=== PATIENT | female | born 1965 | race Caucasian/White ===

== ENCOUNTER 2019-08-11 07:55 | Inpatient (IN) ==
[~2019-08-11 07:55] MED LIST: Vancomycin 1,000 MG, Sodium Chloride IRRigation 1,000 ML IR ONE
--- NOTE | 2019-08-11 08:03 | History & Physical Report ---
Date of Encounter: 08/11/19 Time of Encounter: 08:00 24 Hour HP Update - Instructions Instructions: If the History and Physical is less than 30 days old and was completed prior to A.M. admission and or procedure and has NOT been updated on calendar day of procedure please complete this update prior to performing procedure. - Update Patient reports changes in Medical Condition: No Changes in examination, assessment, or condition: No Changes in Medication: No Preop tests/diagnostics Reviewed: Yes Surgery Remains Indicated: Yes Consent for Planned Operative Procedure(s) Verified: Yes - Pre-Operative Checklist Preoperative Checklist Indicated: Yes Prophylactic Antibiotic Ordered: Yes (vancomycin due to risk of MRSA) Home Medications Include Beta Claudio: Yes Beta Claudio Taken Today (Day of Surgery): Yes Beta Claudio Taken Yesterday (Day Prior to Surgery): Yes Is VTE Prophylaxis Indicated?: Yes
[2019-08-11] MEDS ORDERED: CeFAZolin Syr 2,000MG/20 ML 2,000 MG/20 ML SYRINGE IVPB ONE (08:17)
[2019-08-11] MEDS ORDERED: Albuterol 2.5 MG/3 ML NEBULIZER IH ONE (08:17)
[2019-08-11] MEDS ORDERED: *HR* Midazolam HCl 2 MG/2 ML VIAL ONE (08:21)
[2019-08-11] MEDS ORDERED: *HR* FentaNYL (PF) 100 MCG/2 ML VIAL ONE (08:21)
[2019-08-11] MEDS ORDERED: Lidocaine -MPF 2% 2 ML VIAL ONE ×2 (08:24→09:09)
[2019-08-11] MEDS ORDERED: EPHEDrine 50 MG/ML VIAL ONE (08:24)
[2019-08-11] MEDS ORDERED: *HR* Heparin 5,000 UNIT/ML VIAL ONE ×2 (08:26→12:15)
[2019-08-11] MEDS ORDERED: *HR* Phenylephrine 10 MG/ML VIAL ONE (08:28)
[2019-08-11] MEDS ORDERED: Ringers Solution, Lactated 1,000 ML IVC SCH (08:30)
[2019-08-11] MEDS ORDERED: Heparin 1,000 UNITS/500 mL 0 ML ONE (08:43)
--- NOTE | 2019-08-11 08:46 | Anesthesia Evaluation PreOp ---
Date of Encounter: 08/11/19 Time of Encounter: 08:45 - Past History Planned Operation: Fem-Pop Thrombectomy Possible Revision Cardiac History: CHF, HTN, Hyperlipidemia, Cardiac Surgery (2019), Cardiac Stent (Stent 2017), Other (PVD) Pulmonary History: Former smoker, COPD QUALITY IMPROVEMENT SPECIALIST History: Denies Any Significant HX Other Medical History: Hepatic (Fatty Liver), Diabetes Type II Anesthesia History: No Prior Anesthetic Complications Alcohol Use: none Drug use: none Medications and Allergies Albuterol Sulfate [Ventolin Hfa] 2 puff IH Q4H PRN 04/20/18 [History] Calcium Carbonate [Calcium] 1,000 mg PO QAM 04/20/18 [History] Cetirizine HCl [Zyrtec] 10 mg PO QPM 04/20/18 [History] Lovastatin [Altoprev] 80 mg PO DAILY 04/20/18 [History] Montelukast [Singulair] 10 mg PO HS 04/20/18 [History] Spironolactone [Aldactone] 25 mg PO DAILY #30 tablet 10/28/18 [Rx] Ferrous Sulfate [Iron] 325 mg PO BID 01/30/19 [History] Sucralfate [Carafate] 1 gm PO TIDWM 01/30/19 [History] Aspirin [Lo-Dose Aspirin EC] 81 mg PO QAM 03/07/19 [History] Carvedilol 3.125 mg PO BID 03/07/19 [History] Furosemide [Lasix] 40 mg PO QAM 03/10/19 [History] Isosorbide MONOnitrate (24 HR) [Imdur] 60 mg PO DAILY #30 tab.er.24h 04/05/19 [Rx] Nitroglycerin 0.4 mg SL Q5MIN PRN #25 tab.subl 04/05/19 [Rx] Docusate Sodium [Dulcolax Stool Softener] 100 mg PO QPM 04/13/19 [History] Metformin HCl [Glucophage Xr] 750 mg PO BIDWM 04/13/19 [History] Pantoprazole Sodium [Protonix] 40 mg PO QAM 04/13/19 [History] Potassium Chloride 40 meq PO DAILY 04/13/19 [History] glipiZIDE [Glipizide ER] 10 mg PO QAM 04/13/19 [History] Amiodarone [Cordarone] 200 mg PO DAILY #30 tablet 04/17/19 [Rx] Allergy/AdvReac Type Severity Reaction Status Date / Time Iodinated Contrast Media Allergy Rash Verified 04/13/19 07:43 [Iodinated Contrast Media - Oral and] metoprolol Allergy facial Verified 04/13/19 07:43 swelling latex AdvReac Redness of Verified 04/13/19 07:43 Skin oxybutynin AdvReac Gastrointestinal Verified 04/13/19 07:43 Upset - Meds/Allergy Pre-op Review Medications Reviewed: Yes Allergies Reviewed: Yes Beta Blockers on Current Med List: Yes (Coreg today) Anesthesia Results - Labs Laboratory Tests 04/13/19 08/02/19 08/02/19 10:43 12:28 12:28 Hgb Hct Plt Count PT 10.3 INR 0.9 APTT 30.6 Venous Sodium 131 L Sodium 132 L BUN 8 Creatinine 0.78 08/02/19 12:28 Hgb 13.9 Hct 42.6 Plt Count 341 PT INR APTT Venous Sodium Sodium BUN Creatinine - Imaging EKG: report reviewed (SR Premature Atrial Complex) Additional studies: EF 40% from -2018 ECHO Anesthesia Exam O2 Sat Height 1.63 m Height 1.63 m Weight 68.039 kg Weight 68.039 kg O2 Sat by Pulse Oximetry 99 Vital Signs Temp Pulse Resp BP Pulse Ox 97.9 F 71 18 159/78 99 08/11/19 08:22 08/11/19 08:22 08/11/19 08:22 08/11/19 08:22 08/11/19 08:22 Height: 5'4 Weight: 150 lbs NPO (# of Hours): MN Pain Scale: 0 - HEENT Pupil (Motor): Pupils equal, EOMI Mallampati: II Teeth: Normal Oral Opening: Greater than 3 - QUALITY IMPROVEMENT SPECIALIST LOC: Oriented QUALITY IMPROVEMENT SPECIALIST Motor: Normal RUE, Normal LUE, Normal RLE, Normal LLE, Normal Face QUALITY IMPROVEMENT SPECIALIST Sensory: Normal: RUE, LUE, RLE, LLE, Face - Cardiac Rhythm: Regular Murmur: None JVD: No Carotid Bruit: No - Pulmonary Breath Sounds: bilateral Clear Respiratory Effort: Symmetrical Anesthesia Assess/Plan ASA Score: 4 (HTN CAD COPD DM Fatty Liver) Level of consciousness: Cooperative, Oriented Anesthetic Plan: General Autologous Blood: No Monitoring Plan: Standard Monitors, A-Line Recovery Plan: PACU (Discussed GA, agrees to proceed)
[2019-08-11] MEDS ORDERED: Lidocaine 1% 20 ML MDV ONE (09:11)
[2019-08-11] MEDS ORDERED: Heparin 1,000 UNITS/500 mL 1,000 ML ONE (09:11)
[2019-08-11] MEDS ORDERED: Vancomycin 1,000 MG VIAL ONE ×2 (09:11→11:03)
[2019-08-11] MEDS ORDERED: *HR* Remifentanil 1 MG VIAL IVP ONE ×2 (09:12→12:02)
--- NOTE | 2019-08-11 09:59 | Anesthesia Procedures ---
Date of Encounter: 08/11/19 Time of Encounter: 10:00 Procedures: Anesthesia - Arterial Line Consent obtained: written consent Time out performed: Yes Sedation: Versed (mg): 2 Supplemental Oxygen via Nasal Cannula (L/min): 2 Local Anesthetic: Lidocaine 1% Size (Gauge): 20 Length (inches): 1 3/4 Technique Used: sterile prep, direct puncture technique Post-Procedure: line taped into place Patient tolerated procedure: no complications Complications: none Site: Brachial L Vitals: Vital Signs/O2 Sat/Glucose, Most Current Temp Pulse Resp BP Pulse Ox 08/11/19 09:25 74 12 119/68 99 08/11/19 08:22 97.9 F 71 18 159/78 99
[2019-08-11] MEDS ORDERED: *HR* Propofol 200 MG/20 ML VIAL IVP ONE (10:12)
[2019-08-11] MEDS ORDERED: Calcium Gluconate 1,000 MG/10 ML VIAL ONE (10:55)
[2019-08-11] MEDS ORDERED: *HR* OxyCODONE Immed Rel 5 MG TABLET PO PRN (11:07)
[2019-08-11] MEDS ORDERED: Dexamethasone 4 MG/ML VIAL IVP ONE (11:07)
[2019-08-11] MEDS ORDERED: *HR* Promethazine 25 MG/ML VIAL IVP PRN ×2 (11:07→16:01)
[2019-08-11] MEDS ORDERED: *HR* HYDROmorphone (PF) 1 MG/ML SYRINGE IVP PRN (11:07)
[2019-08-11] MEDS ORDERED: Ondansetron 4 MG/2 ML VIAL IVP ONE (11:07)
[2019-08-11] MEDS ORDERED: *HR* Succinylcholine 200 MG/10 ML VIAL IVP ONE (13:31)
[2019-08-11] MEDS ORDERED: Dexamethasone 4 MG/ML VIAL ONE (13:31)
[2019-08-11] MEDS ORDERED: Ondansetron 4 MG/2 ML VIAL ONE (13:31)
[2019-08-11] MEDS ORDERED: *HR* Labetalol 20 MG/4 ML SYRINGE IVP ONE (13:51)
[2019-08-11] MEDS ORDERED: *HR* HYDROMORPHONE 2 MG/ML VIAL ONE (14:23)
--- NOTE | 2019-08-11 14:39 | Operative Note ---
Date of procedure: 08/11/19 Pre-op diagnosis: Peripheral vascular disease, bypass graft infection Post-op diagnosis: same Procedure: 1. Excision of infected femoral to femoral artery bypass graft. 2. Right lower extremity thrombectomy with 4-Gabonese Sharifa catheter. 3. Left common femoral endarterectomy with bovine pericardial patch angioplasty. Complications: None Anesthesia: HILLARYA Surgeon: Carlos Ochoa Was there an assistant golf coach present: No Estimated blood loss (cc): 80 Specimen: graft thrombus, wound cultures Condition: stable Disposition: PACU Procedure in Detail: Indications: The patient is a 54-year-old female with a history of peripheral vascular disease with rest pain. She is present undergone a femoral to femoral artery bypass. The patient presented with a graft occlusion. However she did reports that as a result of her left heart catheterization she developed a right inguinal chronic wound with purulent drainage. Procedure: The patient was identified in the preoperative area. The risks, benefits alternatives of the procedure were discussed with her and all questions were answered. She was then taken to the operating room and placed in supine position on the operating table. After the induction of general endotracheal anesthesia she was prepped and draped in the normal sterile fashion. During the prep she was noted to have. Drainage coming from a puncture wound at the inguinal fold on the right. This was separate from her incisions. Right groin scar was opened sharply. Hemostasis was obtained with electrocautery. Through a process of blunt, sharp and electrocautery dissection, the skin and subcutaneous tissue were dissected down to the level of the graft. Purulence was encountered surrounding the graft body. Cultures were obtained and were sent to the lab. The left groin scar was opened sharply. Hemostasis was obtained with electrocautery. Through a process of blunt, sharp and electrocautery dissection, the skin and subcutaneous tissue was dissected down to the level of the graft. The left graft limb was noted to have purulence around it as well. Purulence was also encountered within the graft tunnel. Additional cultures were obtained and sent to the lab. The patient received intravenous heparin. Waiting adequate time for the heparin to circulate a graftotomy was made through the left anastomosis. Using a 4- [place] Sharifa embolus to be catheter a graft thrombectomy was performed. The specimen was sent to pathology. The graft was then divided. The right anastomosis was oversewn with 6-0 Prolene. The left anastomosis was clamped and the graft was divided. The graft was removed. The right limb was oversewn with 6-0 Prolene. The left graft anastomosis was dissected down to the level of the femoral artery. The femoral artery was dissected circumferentially proximal distal to the anastomosis. The left common femoral artery was clamped proximally and distally and graft was then excised completely from the artery. This left an arterial defect. Significant intimal hyperplasia was noted in the femoral artery as well. A common femoral endarterectomy was then performed with a dental freer. The clamps were removed individually and antegrade and retrograde flow was noted. The clamps were then reapplied. A bovine pericardial patch was cut to fit the arteriotomy and sutured in place with a running 6-0 Prolene. Prior to completing anastomosis the vessels were flushed. Heparinized saline was infused into the lumen and the patch angioplasty was completed. Flow was restored in the lower extremity and confirmed with Doppler. The right graft anastomosis was then opened sharply. Dense organized thrombus was present within the graft and right common femoral artery. This was removed with direct visualization and a 4-[place]ones[place] Sharifa of [employer] catheter was passed distally. Additional thrombus was retrieved. Antegrade flow was noted to be pulsatile. Retrograde flow was also present. The anastomosis noted to be densely encased in scar. The majority of the remaining graft was resected. A small cuff progressed in place and oversewn with a 6-0 Prolene. Flow was then confirmed in the right femoral vessels by Doppler. The bilateral inguinal regions as well as graft tunnel were pulse lavaged with 3 L of vancomycin containing saline. Meticulous hemostasis was then obtained with electrocautery. Platelet rich and platelet poor plasma was infused into the wounds. A 7-Gabonese Real-Jeronimo drain was passed into the tunnel and brought through a separate stab incision. It was sutured in place with a 0 silk suture. The graft tunnel was reapproximated on each end with a running 2-0 Vicryl. The wounds were then reapproximate with layers of running 2-0 Vicryl and 3-0 Vicryl. The skin was loosely reapproximated with a few interrupted 3-0 Monocryl sutures. Sterile dressings were applied. The patient was not extubated and taken to the recovery room in stable condition.
--- NOTE | 2019-08-11 15:24 | Anesthesia Evaluation Post Op ---
Date of Encounter: 08/11/19 Time of Encounter: 15:23 - Vital Signs Vital Signs: Vital Signs/O2 Sat, Most Current Temp Pulse Resp BP Pulse Ox 97.1 F L 71 13 117/63 94 08/11/19 15:16 08/11/19 15:16 08/11/19 15:16 08/11/19 15:16 08/11/19 15:16 - Lungs Lungs: Clear Ascult./Percussion - Airway Airway: Non-obstructed - Cardiovascular Regular Rate - Mental Status Mental Status: Alert & Oriented, Answers Appropriately - Pain Pain Scale: 5 Pain Scale used: Numeric (1 - 10) - Nausea Vomiting Nausea Vomiting: Not Present - Hydration Hydration: Ice chips, [place] catheter - Discharge PostOp Status: Transfer Patient to floor
[2019-08-11] MEDS ORDERED: 0.9 % Sodium Chloride 1,000 ML IVC SCH (16:01)
[2019-08-11] MEDS ORDERED: Naloxone 0.4 MG/ML INJ IVP PRN (16:01)
[2019-08-11] MEDS ORDERED: *HR* Labetalol 20 MG/4 ML SYRINGE IVP PRN (16:01)
[2019-08-11] MEDS ORDERED: Nitroglycerin 0.4 MG TAB.SUBL SL PRN (16:01)
[2019-08-11] MEDS ORDERED: Acetaminophen 325 MG TABLET PO PRN (16:01)
[2019-08-11] MEDS: *HR* HYDROcodone/Acet 5/325 mg TABLET PO PRN (17:53)
[2019-08-11] MEDS: *HR* Metformin 500 MG TABLET PO SCH ×2 (17:53→17:54)
[2019-08-11] MEDS: Piperacillin/Tazobactam 3.375 GM in 0.9 % Sodium Chloride Mini Bag 100 ML IVPB SCH ×2 (17:54→23:42)
[2019-08-11] MEDS: Loratadine 10 MG TABLET PO SCH (17:54)
[2019-08-11] MEDS ORDERED: 0.9 % Sodium Chloride 500 ML IVC SCH (18:15)
[2019-08-11] MEDS ORDERED: Vancomycin (wt based) 1,000 MG VIAL IVPB SCH (20:00)
[2019-08-11] MEDS: *HR* OxyCODONE Immed Rel 5 MG TABLET PO PRN (22:22)
[2019-08-11] MEDS: valACYclovir 500 MG TABLET PO SCH (23:43)
[2019-08-12] MEDS: *HR* Heparin 5,000 UNIT/ML VIAL SQ SCH ×2 (04:15→17:56)
[2019-08-12 05:23] LABS: BUN/Creatinine Ratio 19 (6-26); Blood Urea Nitrogen 15 mg/dL (6-20); Calcium 8.6 mg/dL (8.6-10.3); Carbon Dioxide 27 mEq/L (23-29); Chloride 99 mEq/L (98-107); Glucose 141 mg/dL (70-105); Osmolality,Calculated 281 (280-300); Potassium 4.4 mEq/L (3.5-5.1); Sodium 134 mEq/L (136-145); eGFR For African Americans > 60 (> 60); eGFR For Non-African Americans > 60 (> 60)
[2019-08-12 05:46] LABS: Basophils % 0.2 %; Eosinophils % 0.4 %; Hematocrit 37.1 % (35.3-44.9); Immature Granulocytes % 0.3 % (0-4); Lymphocytes # 1.5 K/mcL (0.6-4.6); Lymphocytes % 13.7 %; Mean Corpuscular HGB Conc 32.3 g/dL (31.6-35.5); Mean Corpuscular Hemoglobin 28.4 pg (28.0-33.3); Mean Corpuscular Volume 87.7 fL (83.0-100.0); Monocytes % 8.5 %; Neutrophils # 8.6 K/mcL (1.6-8.9); Platelet Count 286 K/mcL (140-400); Red Blood Count 4.23 M/mcL (3.82-4.97); Red Cell Distribution Width 18.6 % (11.5-14.5); Segmented Neutrophils % 76.9 %; White Blood Count 11.2 K/mcL (4.3-11.1)
[2019-08-12] MEDS ORDERED: *HR* Heparin 5,000 UNIT/ML VIAL SQ SCH (06:00)
[2019-08-12] MEDS: *HR* GlipiZIDE XL (24 HR) 10 MG TABLET PO SCH ×2 (07:42→20:32)
[2019-08-12] MEDS: *HR* Metformin 500 MG TABLET PO SCH ×3 (07:43→20:30)
[2019-08-12] MEDS: valACYclovir 500 MG TABLET PO SCH ×2 (07:43→20:31)
[2019-08-12] MEDS: Furosemide 40 MG TABLET PO SCH (07:43)
[2019-08-12] MEDS: Spironolactone 25 MG TABLET PO SCH (07:44)
[2019-08-12] MEDS: Piperacillin/Tazobactam 3.375 GM in 0.9 % Sodium Chloride Mini Bag 100 ML IVPB SCH ×2 (07:44→15:11)
[2019-08-12] MEDS: Aspirin Enteric Coated 81 MG Tablet PO SCH (07:55)
[2019-08-12] MEDS: Loratadine 10 MG TABLET PO SCH (17:49)
--- NOTE | 2019-08-12 20:00 | Vascular/[facility] Progress Note ---
Date of Encounter: 08/12/19 Time of Encounter: 20:00 - Assessment and plan (1) Bacteremia Current Visit: No Status: Acute Patient is status post excision of an infected right to left femoral to femoral bypass graft. The patient is on antibiotic. The left foot is ischemic. The patient has normal motor function. She has no compartment syndrome. She has no evidence of bleeding. The patient is on double IV antibiotic. She is tolerating her diet well. We will allow her to ambulate. She might require an extra-anatomic bypass to revascularize the left lower extremity prior to her discharge. 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 Mcknight is status post excision of right to left cross femoral bypass graft for infection. The graft was totally removed from the left common femoral artery which underwent endarterectomy and patch angioplasty. A short sleeve was left on the right femoral artery. She has been stable overnight without any evidence of bleeding. She has minimal serosanguineous drainage from her JEFFREY drain. The patient is complaining of numbness involving her left foot. The patient claims that the numbness been present prior to her surgery. She claims that her cross femoral bypass was occluded. The patient is currently on vancomycin and Zosyn. Her cultures are pending. Her pain is controlled. Vital Signs, Last 4 Hours Temp Pulse Resp BP Pulse Ox 08/12/19 18:34 98.0 F 75 12 153/75 96 08/12/19 16:30 70 18 142/59 95 08/12/19 16:02 16 97 - Physical Examination General: Present: Conversant, No Apparent Distress HEENT: Present: Atraumatic Cardiac: Present: Reg Rate and Rhythm Neuro: Present: Motor nerves grossly intact, Other (Her left foot is non-. The foot is cold to touch. It is slightly pale) Vascular: Present: Pulse, absent (Her left popliteal and pedal pulses are absent. The left foot is very cold to touch.), Surgical incisions (Covered. Serous drainage in the JEFFREY.) Abdomen: Present: Soft Skin: Present: Other (Left femoral cold to touch.) Results 08/12/19 04:39 08/12/19 04:39 Lab Results, Last 24 hours 08/12/19 08/12/19 04:39 04:39 WBC 11.2 H Hgb 12.0 Hct 37.1 Plt Count 286 Sodium 134 L Potassium 4.4 Chloride 99 Carbon Dioxide 27 BUN 15 Creatinine 0.78 Glucose 141 H Calcium 8.6 Consult Discharge Plan - Plan Referrals: Carlos Ochoa MD [Partnered Physician] - 09/05/19 2:50 pm Chip Cross DO [Primary Care Provider] - 08/22/19 11:30 am
[2019-08-12] MEDS: *HR* OxyCODONE Immed Rel 5 MG TABLET PO PRN (20:37)
[2019-08-13] MEDS: Piperacillin/Tazobactam 3.375 GM in 0.9 % Sodium Chloride Mini Bag 100 ML IVPB SCH ×3 (01:07→15:14)
[2019-08-13 01:18] LABS: Basophils % 0.3 %; Eosinophils # 0.3 K/mcL (0.0-0.6); Eosinophils % 2.7 %; Hematocrit 33.9 % (35.3-44.9); Hemoglobin 11.1 g/dL (11.5-15.4); Immature Granulocytes % 0.4 % (0-4); Lymphocytes # 2.8 K/mcL (0.6-4.6); Lymphocytes % 26.5 %; Mean Corpuscular HGB Conc 32.7 g/dL (31.6-35.5); Mean Corpuscular Hemoglobin 29.3 pg (28.0-33.3); Mean Corpuscular Volume 89.4 fL (83.0-100.0); Mean Platelet Volume 9.1 fL (9.4-12.4); Monocytes # 0.8 K/mcL (0.0-1.3); Neutrophils # 6.4 K/mcL (1.6-8.9); Platelet Count 271 K/mcL (140-400); Red Blood Count 3.79 M/mcL (3.82-4.97); Segmented Neutrophils % 62.1 %; White Blood Count 10.4 K/mcL (4.3-11.1)
[2019-08-13 01:36] LABS: BUN/Creatinine Ratio 18 (6-26); Blood Urea Nitrogen 14 mg/dL (6-20); Calcium 8.5 mg/dL (8.6-10.3); Carbon Dioxide 29 mEq/L (23-29); Chloride 100 mEq/L (98-107); Glucose 91 mg/dL (70-105); Osmolality,Calculated 282 (280-300); Sodium 136 mEq/L (136-145); eGFR For African Americans > 60 (> 60); eGFR For Non-African Americans > 60 (> 60)
[2019-08-13] MEDS: *HR* Heparin 5,000 UNIT/ML VIAL SQ SCH ×2 (05:10→17:15)
[2019-08-13] MEDS: *HR* HYDROcodone/Acet 5/325 mg TABLET PO PRN ×2 (05:10→18:46)
[2019-08-13] MEDS: Furosemide 40 MG TABLET PO SCH (08:01)
[2019-08-13] MEDS: valACYclovir 500 MG TABLET PO SCH ×2 (08:02→20:22)
[2019-08-13] MEDS: Spironolactone 25 MG TABLET PO SCH (08:02)
[2019-08-13] MEDS: Aspirin Enteric Coated 81 MG Tablet PO SCH (08:02)
[2019-08-13] MEDS: *HR* GlipiZIDE XL (24 HR) 10 MG TABLET PO SCH ×2 (09:11→20:23)
[2019-08-13] MEDS: *HR* Metformin 500 MG TABLET PO SCH ×3 (09:11→20:22)
--- NOTE | 2019-08-13 15:17 | Vascular/[facility] Progress Note ---
Date of Encounter: 08/13/19 Time of Encounter: 15:15 - Assessment and plan (1) Bacteremia Current Visit: No Status: Acute Patient is status post excision of an infected right to left femoral to femoral bypass graft. The patient is on antibiotic. The left foot is ischemic. The patient has normal motor function. She has no compartment syndrome. She has no evidence of bleeding. The patient is on double IV antibiotic. She is tolerating her diet well. We will obtain segmental pressures of the lower extremities bilaterally. She might require an extra-anatomic bypass in the near future. 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 Mcknight is status post excision of right to left cross femoral bypass graft for infection. Her left foot numbness is not any better. The patient denies any pain in her right foot. She is tolerating her diet well. She has minimal drainage from her JEFFREY. She is afebrile.. Vital Signs, Last 4 Hours Temp Pulse Resp BP Pulse Ox 08/13/19 11:54 16 96 08/13/19 11:30 98.0 F 67 18 126/70 97 - Physical Examination General: Present: Conversant Cardiac: Present: Reg Rate and Rhythm Lungs: Present: Normal Breath Sounds Neuro: Present: Motor nerves grossly intact, Other (Left foot non-.) Vascular: Present: Pulse, absent (Absent left popliteal and pedal pulses. The left foot is cool to touch. The right foot is very warm.) Abdomen: Present: Soft Skin: Present: Other (Left foot) Results 08/13/19 00:26 08/13/19 00:26 Lab Results, Last 24 hours 08/13/19 08/13/19 00:26 00:26 WBC 10.4 Hgb 11.1 L Hct 33.9 L Plt Count 271 Sodium 136 Potassium 4.0 Chloride 100 Carbon Dioxide 29 BUN 14 Creatinine 0.80 Glucose 91 Calcium 8.5 L Consult Discharge Plan - Plan Referrals: Carlos Ochoa MD [Partnered Physician] - 09/05/19 2:50 pm Chip Cross DO [Primary Care Provider] - 08/22/19 11:30 am
[2019-08-13] MEDS: Loratadine 10 MG TABLET PO SCH (17:15)
[2019-08-14] MEDS: Piperacillin/Tazobactam 3.375 GM in 0.9 % Sodium Chloride Mini Bag 100 ML IVPB SCH ×3 (00:27→15:36)
[2019-08-14] MEDS: *HR* OxyCODONE Immed Rel 5 MG TABLET PO PRN (00:35)
[2019-08-14 01:03] LABS: Basophils % 0.4 %; Eosinophils # 0.4 K/mcL (0.0-0.6); Eosinophils % 3.7 %; Hematocrit 36.5 % (35.3-44.9); Hemoglobin 11.9 g/dL (11.5-15.4); Immature Granulocytes % 0.1 % (0-4); Mean Corpuscular HGB Conc 32.6 g/dL (31.6-35.5); Monocytes # 0.8 K/mcL (0.0-1.3); Monocytes % 8.4 %; Neutrophils # 5.4 K/mcL (1.6-8.9); Platelet Count 281 K/mcL (140-400); Red Cell Distribution Width 18.6 % (11.5-14.5); Segmented Neutrophils % 56.4 %; White Blood Count 9.6 K/mcL (4.3-11.1)
[2019-08-14 01:24] LABS: BUN/Creatinine Ratio 19 (6-26); Blood Urea Nitrogen 13 mg/dL (6-20); Calcium 9.2 mg/dL (8.6-10.3); Carbon Dioxide 27 mEq/L (23-29); Chloride 99 mEq/L (98-107); Glucose 95 mg/dL (70-105); Osmolality,Calculated 284 (280-300); Potassium 4.1 mEq/L (3.5-5.1); Sodium 137 mEq/L (136-145); eGFR For African Americans > 60 (> 60); eGFR For Non-African Americans > 60 (> 60)
[2019-08-14] MEDS: *HR* Heparin 5,000 UNIT/ML VIAL SQ SCH (05:43)
[2019-08-14] MEDS: Aspirin Enteric Coated 81 MG Tablet PO SCH (09:26)
[2019-08-14] MEDS: Spironolactone 25 MG TABLET PO SCH (09:26)
[2019-08-14] MEDS: valACYclovir 500 MG TABLET PO SCH ×2 (09:26→20:05)
[2019-08-14] MEDS: Furosemide 40 MG TABLET PO SCH (09:26)
[2019-08-14] MEDS: *HR* GlipiZIDE XL (24 HR) 10 MG TABLET PO SCH ×2 (09:26→20:06)
[2019-08-14] MEDS: *HR* Metformin 500 MG TABLET PO SCH ×3 (09:26→20:06)
[2019-08-14] MEDS: *HR* HYDROcodone/Acet 5/325 mg TABLET PO PRN ×2 (11:16→20:05)
[2019-08-14] MEDS ORDERED: *HR* Heparin 5,000 UNIT/ML VIAL IVP ONE (15:54)
[2019-08-14] MEDS ORDERED: *HR* Heparin 5,000 UNIT/ML VIAL IVP PRN ×2 (15:54)
--- NOTE | 2019-08-14 15:59 | Vascular/[facility] Progress Note ---
Date of Encounter: 08/14/19 Time of Encounter: 15:40 - Assessment and plan (1) Atherosclerosis of [place] arteries of extremities with intermittent claudication, bilateral legs Current Visit: No Status: Chronic The patient is postoperative day #3 after excision of her femoral to femoral artery bypass. She remains on intravenous antibiotics. Aerobic wound cultures are negative. Anaerobic cultures are pending. The patient will continue with intravenous antibiotics tonight. If she remains afebrile, she will be transitioned to oral antibiotics. She has intact motor function in the right lower extremity and her pedal signals are present. She does report parasthesias. Her compartments are soft. She will start a heparin drip tonight. The patient will ultimately require further revascularization. (2) CAD (coronary artery disease) Current Visit: No Status: Chronic Qualifiers: Coronary Disease-Associated Artery/Lesion type: [place] artery [place] vs. transplanted heart: [place] heart Associated angina: with stable angina Qualified Code(s): I25.118 - Atherosclerotic heart disease of [place] coronary artery with other forms of angina pectoris (3) Mixed hyperlipidemia Current Visit: No Status: Chronic (4) Diabetes mellitus Current Visit: No Status: Chronic Qualifiers: Diabetes mellitus type: type 2 Diabetes mellitus jail insulin use: without jail use Diabetes mellitus complication status: with circulatory complication Diabetes mellitus complication detail: with peripheral angiopathy without gangrene Qualified Code(s): E11.51 - Type 2 diabetes mellitus with diabetic peripheral angiopathy without gangrene (5) Tobacco abuse Current Visit: No Status: Chronic (6) Essential hypertension Current Visit: No Status: Chronic (7) Chronic disease anemia Current Visit: No Status: Chronic - Subjective Interval history: The patient is alert and comfortable. She denies fevers of chills. She denies incisional pain. She does report intermittent left foot pain. She denies chest pain or shortness of breath. Vital Signs, Last 4 Hours Resp Pulse Ox 08/14/19 15:30 16 99 - Physical Examination General: Present: Conversant Neck: Absent: JVD Cardiac: Present: Reg Rate and Rhythm Lungs: Present: Normal Breath Sounds, No Wheeze, Rales, Rhonchi Neuro: Present: Alert and responsive, No focal deficits noted Vascular: Present: Normal capillary refill, Cyanosis (left forefoot), Surgical incisions (incisions clean and dry without erythema or drainage), Other (left pedal signals weakly biphasic) Abdomen: Present: Soft, Non-tender Skin: Present: No rashes noted on visualized skin Musculoskeletal: Present: Other (compartments soft) Results 08/14/19 00:25 08/14/19 00:25 Lab Results, Last 24 hours 08/14/19 08/14/19 00:25 00:25 WBC 9.6 Hgb 11.9 Hct 36.5 Plt Count 281 Sodium 137 Potassium 4.1 Chloride 99 Carbon Dioxide 27 BUN 13 Creatinine 0.69 Glucose 95 Calcium 9.2 Consult Discharge Plan - Plan Referrals: Carlos Ochoa MD [Partnered Physician] - 09/05/19 2:50 pm Chip Cross DO [Primary Care Provider] - 08/22/19 11:30 am
[2019-08-14] MEDS ORDERED: Heparin 25,000 UNIT/250 ML D5W 25,000 UNIT/250 ML IV.SOLN IVC SCH (16:00)
[2019-08-14] MEDS: Loratadine 10 MG TABLET PO SCH (16:42)
[2019-08-14 17:15] LABS: Hematocrit 37.6 % (35.3-44.9); Hemoglobin 12.1 g/dL (11.5-15.4); Mean Corpuscular HGB Conc 32.2 g/dL (31.6-35.5); Platelet Count 299 K/mcL (140-400); Red Blood Count 4.32 M/mcL (3.82-4.97); Red Cell Distribution Width 18.7 % (11.5-14.5); White Blood Count 9.1 K/mcL (4.3-11.1)
[2019-08-14 17:28] LABS: Heparin anti-factor XA UFH 0.03 IU/mL (0.30-0.70); INR 0.9; Prothrombin Time 10.1 Seconds (9.4-12.1)
[2019-08-15] MEDS: Piperacillin/Tazobactam 3.375 GM in 0.9 % Sodium Chloride Mini Bag 100 ML IVPB SCH ×2 (00:15→08:44)
[2019-08-15] MEDS: *HR* HYDROcodone/Acet 5/325 mg TABLET PO PRN (06:30)
[2019-08-15] MEDS: valACYclovir 500 MG TABLET PO SCH (08:40)
[2019-08-15] MEDS: Furosemide 40 MG TABLET PO SCH (08:41)
[2019-08-15] MEDS: Spironolactone 25 MG TABLET PO SCH (08:41)
[2019-08-15] MEDS: *HR* Metformin 500 MG TABLET PO SCH (08:41)
[2019-08-15] MEDS: *HR* GlipiZIDE XL (24 HR) 10 MG TABLET PO SCH (08:41)
[2019-08-15] MEDS: Aspirin Enteric Coated 81 MG Tablet PO SCH (08:41)
[2019-08-15 11:09] VITALS: BP 148/67
--- NOTE | 2019-08-15 11:53 | Discharge Summary ---
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 She is scheduled for revascularization. The patient was noted to have significant drainage from inguinal wounds that began after a heart catheterization procedure. She was taken to the operative room and found have evidence of a graft infection. The graft was excised. She required a left femoral endarterectomy. At this time she is neurovascularly intact the bilateral lower extremity. Due to the severity of the left lower surgery ischemic she started on anticoagulation which has significantly her discomfort. She was discharged today on oral anticoagulation. She will need follow-up in vascular clinic for further evaluation and plan for revascularization. She will remain receive a course of oral antibiotics despite negative cultures. (2) CAD (coronary artery disease) Priority: Secondary Status: Chronic Qualifiers: Coronary Disease-Associated Artery/Lesion type: kaibab artery Teller vs. transplanted heart: kaibab heart Associated angina: with stable angina Qualified Code(s): I25.118 - Atherosclerotic heart disease of kaibab coronary artery with other forms of angina pectoris (3) Mixed hyperlipidemia Priority: Secondary Status: Chronic Comments: She was counseled regarding atherosclerotic risk factor reduction. (4) Diabetes mellitus Priority: Secondary Status: Chronic Qualifiers: Diabetes mellitus type: type 2 Diabetes mellitus half-way insulin use: without intermodal truck driver use Diabetes mellitus complication status: with circulatory complication Diabetes mellitus complication detail: with peripheral angiopathy without gangrene Qualified Code(s): E11.51 - Type 2 diabetes mellitus with diabetic peripheral angiopathy without gangrene (5) Tobacco abuse Priority: Secondary Status: Chronic (6) Essential hypertension Priority: Secondary Status: Chronic (7) Chronic disease anemia Priority: Secondary Status: Chronic - Hospital Course Hospital course: Ms. Mcknight is a 54 year old female with history of peripheral vascular disease with disabling claudication, tobacco abuse, hyperlipidemia, hypertension, coronary artery disease and diabetes. The patient presented to [facility] for revascularization due to an occluded femoral-femoral artery bypass graft. Clinical exam revealed evidence of purulence within the bilateral groins. She reported that this began after she was underwent a left heart catheterization. She states that operative room where the purulence was noted to have extended to the graft. Due to the evidence of a graft infection the graft was excised. The patient required a left femoral endarterectomy. Postoperatively she was treated with intravenous antibiotics. Clinically she remained stable without evidence of bacteremia or sepsis. Her cultures were negative. The patient did have diminished pulses left lower extremity. She was treated with intravenous heparin drip which resulted in significant improvement. She was discharged home on oral anticoagulation and oral antibiotics. The patient expressed. No complications occurred while the patient was hospitalized. She will follow-up in vascular clinic with further imaging for further evaluation and to discuss plans for revascularization. She was advised to contact her office or seek medical attention if she develops progressive ischemia prior to her next scheduled appointment. Time spent discussing smoking cessation with patient: 3 to 10 minutes - Time Spent with Patient Total time spent providing and/or coordinating discharge services: - Discharge Medications Prescriptions: New Amoxicillin/Clavulanate [Augmentin] 875 mg PO BIDWM #20 tablet Doxycycline 100 mg PO BID #20 capsule Rivaroxaban [Xarelto] 20 mg PO DAILY #30 tablet OxyCODONE/APAP 5/325 [Percocet 5/325 MG] 1 each PO Q6HR PRN 5 Days #20 tablet PRN Reason: Postoperative pain Continued Cetirizine HCl [Zyrtec] 10 mg PO QPM Calcium Carbonate [Calcium] 1,000 mg PO QAM Montelukast [Singulair] 10 mg PO HS Albuterol Sulfate [Ventolin Hfa] 2 puff IH Q4H PRN PRN Reason: Shortness Of Breath Spironolactone [Aldactone] 25 mg PO DAILY #30 tablet Aspirin [Lo-Dose Aspirin EC] 81 mg PO QAM Carvedilol 3.125 mg PO BID Furosemide [Lasix] 40 mg PO QAM Nitroglycerin 0.4 mg SL Q5MIN PRN #25 tab.subl PRN Reason: Chest Pain glipiZIDE [Glipizide ER] 10 mg PO BID Metformin HCl [Glucophage Xr] 750 mg PO BIDWM Pantoprazole Sodium [Protonix] 40 mg PO QAM Potassium Chloride 20 meq PO DAILY Lovastatin 80 mg PO QAM Promethazine [Phenergan] 25 mg PO Q8H PRN PRN Reason: Nausea valACYclovir [Valtrex] 500 mg PO BID Home Medications: Albuterol Sulfate [Ventolin Hfa] 2 puff IH Q4H PRN 04/20/18 [History] Calcium Carbonate [Calcium] 1,000 mg PO QAM 04/20/18 [History] Cetirizine HCl [Zyrtec] 10 mg PO QPM 04/20/18 [History] Montelukast [Singulair] 10 mg PO HS 04/20/18 [History] Spironolactone [Aldactone] 25 mg PO DAILY #30 tablet 10/28/18 [Rx] Aspirin [Lo-Dose Aspirin EC] 81 mg PO QAM 03/07/19 [History] Carvedilol 3.125 mg PO BID 03/07/19 [History] Furosemide [Lasix] 40 mg PO QAM 03/10/19 [History] Nitroglycerin 0.4 mg SL Q5MIN PRN #25 tab.subl 04/05/19 [Rx] Metformin HCl [Glucophage Xr] 750 mg PO BIDWM 04/13/19 [History] Pantoprazole Sodium [Protonix] 40 mg PO QAM 04/13/19 [History] Potassium Chloride 20 meq PO DAILY 04/13/19 [History] glipiZIDE [Glipizide ER] 10 mg PO BID 04/13/19 [History] Lovastatin 80 mg PO QAM 08/11/19 [History] Promethazine [Phenergan] 25 mg PO Q8H PRN 08/11/19 [History] valACYclovir [Valtrex] 500 mg PO BID 08/11/19 [History] Amoxicillin/Clavulanate [Augmentin] 875 mg PO BIDWM #20 tablet 08/15/19 [Rx] Doxycycline 100 mg PO BID #20 capsule 08/15/19 [Rx] OxyCODONE/APAP 5/325 [Percocet 5/325 MG] 1 each PO Q6HR PRN 5 Days #20 tablet 08/15/19 [Rx] Rivaroxaban [Xarelto] 20 mg PO DAILY #30 tablet 08/15/19 [Rx] Allergies/Adverse Reactions: Allergy/AdvReac Type Severity Reaction Status Date / Time Iodinated Contrast Media Allergy Rash Verified 04/13/19 07:43 [Iodinated Contrast Media - Oral and] metoprolol Allergy facial Verified 04/13/19 07:43 swelling latex AdvReac Redness of Verified 04/13/19 07:43 Skin oxybutynin AdvReac Gastrointestinal Verified 04/13/19 07:43 Upset Date of admission: 08/11/19 15:52 Primary care physician: Chip Cross DO Procedure(s) Performed: Excision of infected femoral to femoral artery bypass graft, left femoral endarterectomy. Discharging clinician: Carlos Ochoa Anticipated date of discharge: 08/15/19 Exam Vital Signs, Last 4 Hours Temp Pulse Resp BP Pulse Ox 08/15/19 11:02 97.8 F 84 16 148/67 94 08/15/19 07:49 18 93 General: Present: Conversant, No Apparent Distress HEENT: Present: Pupils equal Cardiac: Present: Reg Rate and Rhythm, Normal S1 and S2 Lungs: Present: Normal Breath Sounds Neuro: Present: Alert and responsive, No focal deficits noted Abdomen: Present: Soft, Non-tender Vascular: Present: Pulse, absent (Left pedal pulses absent, pedal signals present), Surgical incisions (Incisions clean, dry and intact without erythema o r drainage). Absent: Edema - Patient Status Disposition: Home, Self-Care Condition: Good Functional capacity at discharge: independent ambulation Overall status at discharge: patient is progressing back to baseline - Discharge Instructions Instructions: Peripheral Vascular Disorders (DC) Follow Up With: Carlos Ochoa MD [Partnered Physician] - 09/05/19 2:50 pm Chip Cross DO [Primary Care Provider] - 08/22/19 11:30 am Additional Instructions: May shower today. Wash wounds gently and pat to dry. Did not use hydrogen peroxide or alcohol on wounds. Apply dry gauze to wounds daily for 7 days. No tub baths or swimming until 09/14/2019. Call Dr. Ochoa at [phone] with questions or concerns. - Diet and Activity Activity: increase activity as tolerated Diet: advance to your usual diet
[2019-08-15] MEDS ORDERED: Doxycycline 100 MG CAPSULE PO ONE (11:57)
[2019-08-15] MEDS ORDERED: FLU Vac QV 19-20 (6Month+)/PF 0.5 ML SYRINGE IM ONE (12:11)
[2019-08-15] MEDS ORDERED: *HR* Rivaroxaban 10 MG TABLET PO ONE (12:45)
[2019-08-15] MEDS ORDERED: Aminoglycoside Consult 1 EACH MC ONE (13:27)
== END 2019-08-15 13:28 | disposition home or self-care (01) | DRG 253 ==
LOC: SAMDAY 07:55 → 2NNU 15:52
PROVIDERS: ADMIT Surgery; ATTEND Surgery

== ENCOUNTER 2019-09-28 08:35 | Inpatient (IN) ==
[2019-09-28] MEDS ORDERED: Albuterol 2.5 MG/3 ML NEBULIZER IH PRN ×2 (09:08→10:05)
[2019-09-28] MEDS ORDERED: CeFAZolin Syr 2,000MG/20 ML 2,000 MG/20 ML SYRINGE IVPB ONE (09:08)
[2019-09-28] MEDS ORDERED: Ringers Solution, Lactated 1,000 ML IVC SCH (09:15)
[2019-09-28] MEDS ORDERED: Famotidine 20 MG/2 ML VIAL IVP ONE (09:49)
[2019-09-28] MEDS ORDERED: Acetaminophen IV 1,000 MG/100 ML INFUS..BTL IVPB ONE (09:49)
[2019-09-28] MEDS ORDERED: Aspirin 81 MG TAB.CHEW PO ONE (09:50)
[2019-09-28] MEDS ORDERED: *HR* Promethazine 25 MG/ML VIAL IVP PRN (10:05)
[2019-09-28] MEDS ORDERED: *HR* OxyCODONE Immed Rel 5 MG TABLET PO PRN ×3 (10:05→17:46)
[2019-09-28] MEDS ORDERED: *HR* Labetalol 20 MG/4 ML SYRINGE IVP PRN ×2 (10:05→17:46)
[2019-09-28] MEDS ORDERED: Ondansetron 4 MG/2 ML VIAL IVP ONE (10:05)
[2019-09-28] MEDS ORDERED: *HR* HYDROmorphone (PF) 1 MG/ML SYRINGE IVP PRN (10:05)
[2019-09-28] MEDS ORDERED: Lidocaine HCL 4 ML Topical Solution (Laryng-O-Jet Kit Sterile Pak) TP ONE (10:08)
[2019-09-28] MEDS ORDERED: Neostigmine Methylsulfate 3 MG/3 ML SYRINGE ONE (10:08)
[2019-09-28] MEDS ORDERED: Lidocaine -MPF 2% 2 ML VIAL ONE ×2 (10:08→11:06)
[2019-09-28] MEDS ORDERED: Dexamethasone 4 MG/ML VIAL ONE (10:08)
[2019-09-28] MEDS ORDERED: *HR* FentaNYL (PF) 100 MCG/2 ML VIAL ONE ×2 (10:08→12:35)
[2019-09-28] MEDS ORDERED: *HR* Heparin 5,000 UNIT/ML VIAL ONE ×2 (10:08→13:37)
[2019-09-28] MEDS ORDERED: *HR* Midazolam HCl 2 MG/2 ML VIAL ONE (10:08)
[2019-09-28] MEDS ORDERED: *HR* Rocuronium Bromide 50 MG/5 ML VIAL ONE (10:08)
[2019-09-28] MEDS ORDERED: Ondansetron 4 MG/2 ML VIAL ONE (10:08)
[2019-09-28] MEDS ORDERED: *HR* Propofol 200 MG/20 ML VIAL IVP ONE (10:08)
[2019-09-28] MEDS ORDERED: Vancomycin 1,000 MG, Sodium Chloride IRRigation 1,000 ML IR ONE ×2 (10:30)
[2019-09-28] MEDS ORDERED: Heparin 1,000 UNITS/500 mL 0 ML ONE (10:45)
[2019-09-28] MEDS ORDERED: Heparin 1,000 UNITS/500 mL 1,000 ML ONE (10:52)
[2019-09-28] MEDS ORDERED: Calcium Gluconate 1,000 MG/10 ML VIAL ONE (11:41)
[2019-09-28] MEDS ORDERED: *HR* PHENYLEPHRINE 1,000 MCG/10 ML SYRINGE IVP ONE (11:44)
[2019-09-28] MEDS ORDERED: Albumin Human 5% 25.0 GM/500 ML VIAL ONE (11:51)
[2019-09-28] MEDS ORDERED: *HR* HYDROMORPHONE 2 MG/ML VIAL ONE (15:34)
[2019-09-28] MEDS ORDERED: Ondansetron 4 MG/2 ML VIAL IVP PRN (17:46)
[2019-09-28] MEDS ORDERED: *HR* HYDROcodone/Acet 5/325 mg TABLET PO PRN ×2 (17:46)
[2019-09-28] MEDS ORDERED: 0.9 % Sodium Chloride 1,000 ML IVC SCH (17:46)
[2019-09-28] MEDS ORDERED: D5% in Water 1,000 ML IVC PRN (17:46)
[2019-09-28] MEDS ORDERED: Acetaminophen 325 MG TABLET PO PRN ×2 (17:46)
[2019-09-28] MEDS ORDERED: *HR* Dextrose 50 % in Water (Syg) 50 ML SYRINGE IVP PRN (17:46)
[2019-09-28] MEDS ORDERED: Nitroglycerin 0.4 MG TAB.SUBL SL PRN (17:46)
[2019-09-28] MEDS ORDERED: Dextrose Gel 15 GM/37.5 ML TUBE PO PRN ×2 (17:46)
[2019-09-28] MEDS ORDERED: Naloxone 0.4 MG/ML INJ IVP PRN (17:46)
[2019-09-28] MEDS ORDERED: Loratadine 10 MG TABLET PO SCH (18:00)
[2019-09-28] MEDS: *HR* Metoprolol 5 MG/5 ML VIAL IVP SCH ×3 (18:37→23:43)
[2019-09-28] MEDS: Insulin LISPRO 300 UNITS/3 ML VIAL SQ SCH (18:45)
[2019-09-28] MEDS ORDERED: 0.9 % Sodium Chloride 500 ML IVC SCH (18:45)
[2019-09-28] MEDS ORDERED: valACYclovir 500 MG TABLET PO SCH (21:00)
[2019-09-28] MEDS ORDERED: Insulin LISPRO 300 UNITS/3 ML VIAL SQ SCH (21:00)
[2019-09-29 04:30] LABS: Basophils % 0.2 %; Hematocrit 32.4 % (35.3-44.9); Immature Granulocytes % 0.4 % (0-4); Lymphocytes # 1.4 K/mcL (0.6-4.6); Mean Corpuscular HGB Conc 32.1 g/dL (31.6-35.5); Mean Corpuscular Hemoglobin 30.9 pg (28.0-33.3); Mean Corpuscular Volume 96.1 fL (83.0-100.0); Mean Platelet Volume 9.4 fL (9.4-12.4); Monocytes # 0.8 K/mcL (0.0-1.3); Monocytes % 6.1 %; Neutrophils # 10.6 K/mcL (1.6-8.9); Platelet Count 245 K/mcL (140-400); Red Blood Count 3.37 M/mcL (3.82-4.97); Red Cell Distribution Width 17.8 % (11.5-14.5); Segmented Neutrophils % 82.3 %; White Blood Count 12.9 K/mcL (4.3-11.1)
[2019-09-29 04:36] LABS: Hemoglobin 10.4 g/dL (11.5-15.4)
[2019-09-29 04:47] LABS: BUN/Creatinine Ratio 19 (6-26); Blood Urea Nitrogen 11 mg/dL (6-20); Calcium 8.6 mg/dL (8.6-10.3); Carbon Dioxide 29 mEq/L (23-29); Chloride 103 mEq/L (98-107); Glucose 144 mg/dL (70-105); Osmolality,Calculated 284 (280-300); Potassium 4.4 mEq/L (3.5-5.1); Sodium 136 mEq/L (136-145); eGFR For African Americans > 60 (> 60); eGFR For Non-African Americans > 60 (> 60)
[2019-09-29] MEDS: *HR* Metoprolol 5 MG/5 ML VIAL IVP SCH (05:20)
[2019-09-29] MEDS ORDERED: *HR* Heparin 5,000 UNIT/ML VIAL SQ SCH (06:00)
[2019-09-29 07:32] VITALS: BP 137/57
[2019-09-29] MEDS: Insulin LISPRO 300 UNITS/3 ML VIAL SQ SCH (08:00)
[2019-09-29] MEDS ORDERED: *HR* Rivaroxaban 10 MG TABLET PO SCH (09:00)
[2019-09-29] MEDS ORDERED: Aspirin Enteric Coated 81 MG Tablet PO SCH (09:00)
[2019-09-29] MEDS ORDERED: Furosemide 40 MG TABLET PO SCH (09:00)
[2019-09-29] MEDS ORDERED: Spironolactone 25 MG TABLET PO SCH (09:00)
== END 2019-09-29 09:57 | disposition home or self-care (01) | DRG 254 ==
LOC: SAMDAY 08:35 → 2NNU 17:45
PROVIDERS: ADMIT Surgery; ATTEND Surgery
PROC: VASFFBG (ICD-10-PCS; 2019-09-28 10:30)

== ENCOUNTER 2020-02-15 06:14 | Inpatient (IN) ==
[2020-02-15] MEDS ORDERED: CeFAZolin Syr 2,000MG/20 ML 2,000 MG/20 ML SYRINGE IVPB ONE (06:43)
[2020-02-15] MEDS ORDERED: Ringers Solution, Lactated 1,000 ML IVC SCH (06:45)
[2020-02-15] MEDS ORDERED: *HR* FentaNYL (PF) 100 MCG/2 ML VIAL ONE (06:51)
[2020-02-15] MEDS ORDERED: EPHEDrine 50 MG/ML VIAL ONE (06:51)
[2020-02-15] MEDS ORDERED: *HR* PHENYLEPHRINE 1,000 MCG/10 ML SYRINGE IVP ONE (06:51)
[2020-02-15] MEDS ORDERED: *HR* Succinylcholine 200 MG/10 ML VIAL IVP ONE (06:51)
[2020-02-15] MEDS ORDERED: *HR* Rocuronium Bromide 50 MG/5 ML VIAL ONE ×3 (06:51→12:17)
[2020-02-15] MEDS ORDERED: Dexamethasone 4 MG/ML VIAL ONE (06:51)
[2020-02-15] MEDS ORDERED: Ondansetron 4 MG/2 ML VIAL ONE (06:51)
[2020-02-15] MEDS ORDERED: Lidocaine -MPF 2% 2 ML VIAL ONE ×2 (06:51→08:42)
[2020-02-15] MEDS ORDERED: *HR* Midazolam HCl 2 MG/2 ML VIAL ONE (06:52)
[2020-02-15] MEDS ORDERED: *HR* Propofol 200 MG/20 ML VIAL IVP ONE (06:52)
[2020-02-15] MEDS ORDERED: *HR* Phenylephrine 10 MG/ML VIAL ONE (06:57)
[2020-02-15] MEDS ORDERED: *HR* Remifentanil 2 MG VIAL IVP ONE (07:01)
[2020-02-15] MEDS ORDERED: *HR* HYDROmorphone PF 0.5 MG/0.5 ML SYRINGE IVP PRN (07:16)
[2020-02-15] MEDS ORDERED: Ondansetron 4 MG/2 ML VIAL IVP ONE (07:16)
[2020-02-15] MEDS ORDERED: Acetaminophen IV 1,000 MG/100 ML INFUS..BTL IVPB ONE (07:16)
[2020-02-15] MEDS ORDERED: *HR* Promethazine 25 MG/ML VIAL IVP PRN (07:16)
[2020-02-15] MEDS ORDERED: *HR* Meperidine 25 MG/ML SYRINGE IVP PRN (07:16)
[2020-02-15] MEDS ORDERED: Heparin 1,000 UNITS/500 mL 500 ML ONE ×2 (07:30→07:36)
[2020-02-15] MEDS ORDERED: Vancomycin 1,000 MG VIAL ONE ×2 (07:37→14:00)
[2020-02-15] MEDS ORDERED: Heparin 1,000 UNITS/500 mL 0 ML ONE (07:41)
[2020-02-15] MEDS ORDERED: Vancomycin 1,000 MG, Sodium Chloride IRRigation 1,000 ML IR ONE (07:45)
[2020-02-15] MEDS ORDERED: Albumin Human 5% 0 GM/0 ML IV.SOLN ONE (09:21)
[2020-02-15] MEDS ORDERED: *HR* Heparin 5,000 UNIT/ML VIAL ONE ×2 (11:32→12:16)
[2020-02-15] MEDS ORDERED: Albumin Human 5% 12.5 GM/250 ML IV.SOLN ONE (12:12)
[2020-02-15] MEDS ORDERED: *HR* Remifentanil 1 MG VIAL IVP ONE (13:16)
[2020-02-15] MEDS ORDERED: *HR* HYDROMORPHONE 2 MG/ML VIAL ONE (14:32)
[2020-02-15] MEDS ORDERED: Ondansetron 4 MG/2 ML VIAL IVP PRN (16:23)
[2020-02-15] MEDS ORDERED: *HR* HYDROcodone/Acet 5/325 mg TABLET PO PRN (16:23)
[2020-02-15] MEDS ORDERED: Nitroglycerin 0.4 MG TAB.SUBL SL PRN (16:23)
[2020-02-15] MEDS ORDERED: Acetaminophen 325 MG TABLET PO PRN (16:23)
[2020-02-15] MEDS ORDERED: Naloxone 0.4 MG/ML INJ IVP PRN (16:23)
[2020-02-15] MEDS ORDERED: *HR* Labetalol 20 MG/4 ML SYRINGE IVP PRN (16:23)
[2020-02-15] MEDS ORDERED: D5% in Water 1,000 ML IVC PRN (16:31)
[2020-02-15] MEDS ORDERED: *HR* Dextrose 50 % in Water (Syg) 50 ML SYRINGE IVP PRN (16:31)
[2020-02-15] MEDS ORDERED: Dextrose Gel 15 GM/37.5 ML TUBE PO PRN ×2 (16:31)
[2020-02-15] MEDS: 0.9 % Sodium Chloride 1,000 ML IVC SCH (17:22)
[2020-02-15 17:32] LABS: Basophils % 0.1 %; Hematocrit 40.6 % (35.3-44.9); Hemoglobin 13.4 g/dL (11.5-15.4); Immature Granulocytes % 0.5 % (0-4); Lymphocytes # 0.5 K/mcL (0.6-4.6); Lymphocytes % 2.7 %; Mean Corpuscular Hemoglobin 30.9 pg (28.0-33.3); Mean Corpuscular Volume 93.5 fL (83.0-100.0); Mean Platelet Volume 8.5 fL (9.4-12.4); Monocytes # 0.7 K/mcL (0.0-1.3); Monocytes % 4.1 %; Neutrophils # 16.2 K/mcL (1.6-8.9); Platelet Count 231 K/mcL (140-400); Red Blood Count 4.34 M/mcL (3.82-4.97); Red Cell Distribution Width 14.6 % (11.5-14.5); Segmented Neutrophils % 92.6 %; White Blood Count 17.5 K/mcL (4.3-11.1)
[2020-02-15] MEDS: ceFAZolin 2,000 MG in 0.9 % Sodium Chloride 100 ML IVPB SCH (17:46)
[2020-02-15] MEDS: *HR* Metoprolol 5 MG/5 ML VIAL IVP SCH ×2 (17:46→23:57)
[2020-02-15] MEDS: Insulin LISPRO 300 UNITS/3 ML VIAL SQ SCH ×2 (17:47→23:55)
[2020-02-16] MEDS: ceFAZolin 2,000 MG in 0.9 % Sodium Chloride 100 ML IVPB SCH (03:10)
[2020-02-16 04:56] LABS: BUN/Creatinine Ratio 16 (6-26); Blood Urea Nitrogen 10 mg/dL (6-20); Calcium 7.8 mg/dL (8.6-10.3); Carbon Dioxide 28 mEq/L (23-29); Chloride 102 mEq/L (98-107); Glucose 115 mg/dL (70-105); Osmolality,Calculated 272 (280-300); Potassium 4.7 mEq/L (3.5-5.1); Sodium 131 mEq/L (136-145); eGFR For African Americans > 60 (> 60); eGFR For Non-African Americans > 60 (> 60)
[2020-02-16] MEDS: *HR* Heparin 5,000 UNIT/ML VIAL SQ SCH ×2 (05:09→17:22)
[2020-02-16] MEDS: *HR* Metoprolol 5 MG/5 ML VIAL IVP SCH ×3 (05:09→17:22)
[2020-02-16] MEDS: Insulin LISPRO 300 UNITS/3 ML VIAL SQ SCH ×3 (05:09→18:07)
[2020-02-16] MEDS ORDERED: *HR* Heparin 5,000 UNIT/ML VIAL SQ SCH (06:00)
[2020-02-16] MEDS: Aspirin Enteric Coated 81 MG Tablet PO SCH (08:28)
[2020-02-16] MEDS: Pantoprazole 40 MG VIAL IVP SCH (08:28)
[2020-02-16] MEDS: 0.9 % Sodium Chloride 1,000 ML IVC SCH ×2 (09:05→21:34)
[2020-02-16 16:26] LABS: Basophils % 0.1 %; Eosinophils # 0.1 K/mcL (0.0-0.6); Eosinophils % 0.6 %; Hematocrit 38.5 % (35.3-44.9); Hemoglobin 12.6 g/dL (11.5-15.4); Immature Granulocytes % 0.3 % (0-4); Lymphocytes # 1.2 K/mcL (0.6-4.6); Lymphocytes % 9.2 %; Mean Corpuscular HGB Conc 32.7 g/dL (31.6-35.5); Mean Corpuscular Hemoglobin 31.4 pg (28.0-33.3); Mean Platelet Volume 8.9 fL (9.4-12.4); Monocytes # 0.9 K/mcL (0.0-1.3); Monocytes % 7.4 %; Neutrophils # 10.3 K/mcL (1.6-8.9); Platelet Count 231 K/mcL (140-400); Red Blood Count 4.01 M/mcL (3.82-4.97); Segmented Neutrophils % 82.4 %; White Blood Count 12.5 K/mcL (4.3-11.1)
[2020-02-17] MEDS: *HR* Metoprolol 5 MG/5 ML VIAL IVP SCH ×4 (01:41→16:41)
[2020-02-17] MEDS: Insulin LISPRO 300 UNITS/3 ML VIAL SQ SCH ×6 (01:41→20:55)
[2020-02-17 04:39] LABS: BUN/Creatinine Ratio 14 (6-26); Blood Urea Nitrogen 7 mg/dL (6-20); Calcium 8.6 mg/dL (8.6-10.3); Carbon Dioxide 27 mEq/L (23-29); Chloride 102 mEq/L (98-107); Glucose 160 mg/dL (70-105); Osmolality,Calculated 285 (280-300); Potassium 4.1 mEq/L (3.5-5.1); Sodium 137 mEq/L (136-145); eGFR For African Americans > 60 (> 60); eGFR For Non-African Americans > 60 (> 60)
[2020-02-17] MEDS: *HR* Heparin 5,000 UNIT/ML VIAL SQ SCH ×2 (05:48→16:41)
[2020-02-17] MEDS: Aspirin Enteric Coated 81 MG Tablet PO SCH (07:33)
[2020-02-17] MEDS: Pantoprazole 40 MG VIAL IVP SCH (07:33)
[2020-02-17] MEDS: *HR* OxyCODONE Immed Rel 5 MG TABLET PO PRN ×2 (14:31→20:48)
[2020-02-17 16:11] LABS: Basophils % 0.2 %; Eosinophils # 0.1 K/mcL (0.0-0.6); Eosinophils % 1.2 %; Hematocrit 36.9 % (35.3-44.9); Hemoglobin 11.8 g/dL (11.5-15.4); Immature Granulocytes % 0.3 % (0-4); Lymphocytes % 7.8 %; Mean Corpuscular Hemoglobin 31.1 pg (28.0-33.3); Mean Corpuscular Volume 97.4 fL (83.0-100.0); Mean Platelet Volume 8.9 fL (9.4-12.4); Monocytes # 1.1 K/mcL (0.0-1.3); Monocytes % 8.9 %; Neutrophils # 9.9 K/mcL (1.6-8.9); Platelet Count 218 K/mcL (140-400); Red Blood Count 3.79 M/mcL (3.82-4.97); Red Cell Distribution Width 15.3 % (11.5-14.5); Segmented Neutrophils % 81.6 %; White Blood Count 12.2 K/mcL (4.3-11.1)
[2020-02-18] MEDS: *HR* Metoprolol 5 MG/5 ML VIAL IVP SCH ×4 (00:44→16:41)
[2020-02-18 02:47] LABS: BUN/Creatinine Ratio 12 (6-26); Blood Urea Nitrogen 5 mg/dL (6-20); Carbon Dioxide 25 mEq/L (23-29); Chloride 100 mEq/L (98-107); Glucose 169 mg/dL (70-105); Osmolality,Calculated 277 (280-300); Potassium 3.5 mEq/L (3.5-5.1); Sodium 133 mEq/L (136-145); eGFR For African Americans > 60 (> 60); eGFR For Non-African Americans > 60 (> 60)
[2020-02-18] MEDS: *HR* OxyCODONE Immed Rel 5 MG TABLET PO PRN ×3 (03:25→21:10)
[2020-02-18] MEDS: *HR* Heparin 5,000 UNIT/ML VIAL SQ SCH ×2 (05:27→16:41)
[2020-02-18] MEDS: Pantoprazole 40 MG VIAL IVP SCH (07:22)
[2020-02-18] MEDS: Aspirin Enteric Coated 81 MG Tablet PO SCH (07:23)
[2020-02-18] MEDS: Insulin LISPRO 300 UNITS/3 ML VIAL SQ SCH ×4 (08:34→21:12)
[2020-02-19] MEDS: *HR* Metoprolol 5 MG/5 ML VIAL IVP SCH ×2 (00:16→05:50)
[2020-02-19] MEDS: *HR* Heparin 5,000 UNIT/ML VIAL SQ SCH (05:50)
[2020-02-19 07:20] VITALS: BP 144/66
[2020-02-19] MEDS: Pantoprazole 40 MG VIAL IVP SCH (07:37)
[2020-02-19] MEDS: Aspirin Enteric Coated 81 MG Tablet PO SCH (07:37)
[2020-02-19] MEDS: Insulin LISPRO 300 UNITS/3 ML VIAL SQ SCH (07:40)
== END 2020-02-19 11:25 | disposition home or self-care (01) | DRG 271 ==
LOC: SAMDAY 06:14 → 2NNU 16:23
PROVIDERS: ADMIT Surgery; ATTEND Surgery

== ENCOUNTER 2020-10-25 16:59 | Inpatient (IN) ==
[2020-10-25] MEDS ORDERED: methylPREDNISolone 125 MG/2 ML VIAL IVP ONE (17:03)
[2020-10-25] MEDS ORDERED: Ipratropium/Albuterol Neb 3 ML IH ONE (17:03)
[2020-10-25 17:30] LABS: ABG Base Excess 15 mEq/L (-2 to 3); ABG HCO3 47 mEq/L (21-27); ABG Oxygen Saturation 96 % (95-98); ABG PCO2 91 mmHg (35-45); ABG PH 7.32 pH Units (7.32-7.45); ABG PO2 93 mmHg (85-104); ABG TCO2 50 mEq/L (20-26)
[2020-10-25 17:31] LABS: Basophils % 0.1 %; Hematocrit 41.9 % (35.3-44.9); Hemoglobin 13.1 g/dL (11.5-15.4); Immature Granulocytes % 0.5 % (0-4); Lymphocytes # 0.3 K/mcL (0.6-4.6); Lymphocytes % 1.7 %; Mean Corpuscular HGB Conc 31.3 g/dL (31.6-35.5); Mean Corpuscular Hemoglobin 29.2 pg (28.0-33.3); Mean Corpuscular Volume 93.5 fL (83.0-100.0); Mean Platelet Volume 8.8 fL (9.4-12.4); Monocytes # 0.7 K/mcL (0.0-1.3); Monocytes % 3.7 %; Neutrophils # 17.6 K/mcL (1.6-8.9); Platelet Count 308 K/mcL (140-400); Red Blood Count 4.48 M/mcL (3.82-4.97); Red Cell Distribution Width 15.9 % (11.5-14.5); White Blood Count 18.7 K/mcL (4.3-11.1)
[2020-10-25 17:33] LABS: INR 1.2; Prothrombin Time 13.3 Seconds (9.4-12.1)
[2020-10-25 17:52] LABS: Alanine Aminotransferase 16 Units/L (7-52); Albumin 4.3 g/dL (3.5-5.7); Albumin/Globulin Ratio 1.7 (1.1-2.2); Alkaline Phosphatase 110 Units/L (34-104); Aspartate Amino Transferase 18 Units/L (13-39); BUN/Creatinine Ratio 36 (6-26); Bilirubin,Total 0.9 mg/dL (0.3-1.0); Blood Urea Nitrogen 22 mg/dL (6-20); Calcium 9.1 mg/dL (8.6-10.3); Carbon Dioxide 40 mEq/L (23-29); Chloride 81 mEq/L (98-107); Globulin 2.6 g/dL (2.4-3.5); Glucose 217 mg/dL (70-105); Magnesium 1.5 mg/dL (1.6-2.6); Osmolality,Calculated 284 (280-300); Potassium 4.6 mEq/L (3.5-5.1); Sodium 132 mEq/L (136-145); Total Protein 6.9 g/dL (6.4-8.9); Troponin I < 0.03 ng/mL (< 0.04); eGFR For African Americans > 60 (> 60); eGFR For Non-African Americans > 60 (> 60)
[2020-10-25] MEDS ORDERED: levoFLOXacin 500 MG/100 ML 500 MG/100 ML BAG IVPB ONE (17:57)
[2020-10-25] MEDS ORDERED: Naloxone 0.4 MG/ML INJ IVP PRN (19:36)
[2020-10-25] MEDS ORDERED: Dextrose Gel 15 GM/37.5 ML TUBE PO PRN ×2 (21:35)
[2020-10-25] MEDS ORDERED: D5% in Water 1,000 ML IVC PRN (21:35)
[2020-10-25] MEDS ORDERED: *HR* Dextrose 50 % in Water (Vial) 50 ML VIAL IVP PRN (21:35)
[2020-10-25] MEDS ORDERED: Furosemide 40 MG/4 ML VIAL IVP ONE (22:32)
[2020-10-26] MEDS: Ipratropium/Albuterol Neb 3 ML IH SCH ×7 (00:17→23:47)
[2020-10-26 00:47] LABS: ABG Base Excess 19 mEq/L (-2 to 3); ABG HCO3 48 mEq/L (21-27); ABG Oxygen Saturation 91 % (95-98); ABG PCO2 74 mmHg (35-45); ABG PH 7.42 pH Units (7.32-7.45); ABG PO2 63 mmHg (85-104); ABG TCO2 50 mEq/L (20-26)
[2020-10-26 04:41] LABS: ABG Base Excess 19 mEq/L (-2 to 3); ABG HCO3 48 mEq/L (21-27); ABG Oxygen Saturation 89 % (95-98); ABG PCO2 70 mmHg (35-45); ABG PH 7.44 pH Units (7.32-7.45); ABG PO2 58 mmHg (85-104); ABG TCO2 50 mEq/L (20-26); Blood Gas Pressure Support 6 cm H2O
[2020-10-26 05:46] LABS: Basophils % 0.1 %; Hematocrit 40.8 % (35.3-44.9); Immature Granulocytes % 0.6 % (0-4); Lymphocytes # 0.4 K/mcL (0.6-4.6); Lymphocytes % 1.5 %; Mean Corpuscular HGB Conc 31.9 g/dL (31.6-35.5); Mean Corpuscular Volume 91.1 fL (83.0-100.0); Mean Platelet Volume 9.1 fL (9.4-12.4); Monocytes # 0.9 K/mcL (0.0-1.3); Platelet Count 287 K/mcL (140-400); Red Blood Count 4.48 M/mcL (3.82-4.97); Segmented Neutrophils % 93.8 %; White Blood Count 23.5 K/mcL (4.3-11.1)
[2020-10-26 06:15] LABS: BUN/Creatinine Ratio 33 (6-26); Blood Urea Nitrogen 18 mg/dL (6-20); Carbon Dioxide 42 mEq/L (23-29); Chloride 82 mEq/L (98-107); Glucose 156 mg/dL (70-105); Magnesium 1.9 mg/dL (1.6-2.6); Osmolality,Calculated 285 (280-300); Phosphorous 4.2 mg/dL (2.7-4.5); Potassium 4.1 mEq/L (3.5-5.1); Sodium 135 mEq/L (136-145); eGFR For African Americans > 60 (> 60); eGFR For Non-African Americans > 60 (> 60)
[2020-10-26] MEDS: Aspirin Enteric Coated 81 MG Tablet PO SCH (08:37)
[2020-10-26] MEDS: *HR* Rivaroxaban 10 MG TABLET PO SCH (08:38)
[2020-10-26] MEDS: predniSONE 20 MG TABLET PO SCH (08:38)
[2020-10-26] MEDS: carvediloL 6.25 MG TABLET PO SCH ×2 (08:38→17:09)
[2020-10-26] MEDS: Insulin LISPRO 300 UNITS/3 ML VIAL SQ SCH ×4 (08:46→20:47)
[2020-10-26] MEDS: Spironolactone 25 MG TABLET PO SCH (09:34)
[2020-10-26] MEDS: levoFLOXacin 750 MG/150 ML 750 MG/150 ML BAG IVPB SCH (17:09)
[2020-10-26] MEDS ORDERED: Nitroglycerin 0.4 MG TAB.SUBL SL PRN (17:53)
[2020-10-26] MEDS ORDERED: *HR* OxyCODONE/APAP 10/325 TABLET PO PRN (17:53)
[2020-10-26] MEDS: Furosemide 40 MG/4 ML VIAL IVP SCH (20:48)
[2020-10-26] MEDS: Gabapentin 300 MG CAPSULE PO SCH (20:48)
[2020-10-26] MEDS ORDERED: 0.9 % Sodium Chloride 500 ML ONE (22:20)
[2020-10-26] MEDS ORDERED: *HR* Metoprolol 5 MG/5 ML VIAL IVP ONE ×4 (22:20→22:57)
[2020-10-26] MEDS ORDERED: 0.9 % Sodium Chloride 500 ML IVC ONE ×2 (22:28→23:30)
[2020-10-26] MEDS ORDERED: Amiodarone Premix 150 MG/100 ML BAG IVPB ONE (22:47)
[2020-10-26] MEDS ORDERED: Amiodarone Premix 360 MG/200 ML BAG IVC ONE (23:00)
[2020-10-27] MEDS: Ipratropium/Albuterol Neb 3 ML IH SCH ×6 (03:39→23:18)
[2020-10-27] MEDS ORDERED: Amiodarone Premix 360 MG/200 ML BAG IVC SCH (05:00)
[2020-10-27 05:24] LABS: Basophils % 0.1 %; Eosinophils % 0.1 %; Hemoglobin 11.6 g/dL (11.5-15.4); Immature Granulocytes % 0.6 % (0-4); Lymphocytes # 0.3 K/mcL (0.6-4.6); Mean Corpuscular HGB Conc 31.4 g/dL (31.6-35.5); Mean Corpuscular Hemoglobin 28.9 pg (28.0-33.3); Mean Platelet Volume 9.1 fL (9.4-12.4); Monocytes # 0.5 K/mcL (0.0-1.3); Monocytes % 3.6 %; Neutrophils # 13.8 K/mcL (1.6-8.9); Platelet Count 237 K/mcL (140-400); Red Blood Count 4.02 M/mcL (3.82-4.97); Red Cell Distribution Width 16.4 % (11.5-14.5); Segmented Neutrophils % 93.6 %; White Blood Count 14.8 K/mcL (4.3-11.1)
[2020-10-27 05:46] LABS: BUN/Creatinine Ratio 36 (6-26); Blood Urea Nitrogen 16 mg/dL (6-20); Calcium 8.8 mg/dL (8.6-10.3); Carbon Dioxide 44 mEq/L (23-29); Chloride 87 mEq/L (98-107); Glucose 185 mg/dL (70-105); Osmolality,Calculated 288 (280-300); Potassium 3.8 mEq/L (3.5-5.1); Sodium 136 mEq/L (136-145); eGFR For African Americans > 60 (> 60); eGFR For Non-African Americans > 60 (> 60)
[2020-10-27 07:16] LABS: ABG Base Excess 16 mEq/L (-2 to 3); ABG HCO3 47 mEq/L (21-27); ABG Oxygen Saturation 99 % (95-98); ABG PCO2 86 mmHg (35-45); ABG PH 7.34 pH Units (7.32-7.45); ABG PO2 163 mmHg (85-104); ABG TCO2 49 mEq/L (20-26)
[2020-10-27] MEDS: *HR* Rivaroxaban 10 MG TABLET PO SCH (08:23)
[2020-10-27] MEDS: predniSONE 20 MG TABLET PO SCH (08:23)
[2020-10-27] MEDS: Aspirin Enteric Coated 81 MG Tablet PO SCH (08:24)
[2020-10-27] MEDS: carvediloL 6.25 MG TABLET PO SCH ×2 (08:24→16:51)
[2020-10-27] MEDS: Furosemide 40 MG/4 ML VIAL IVP SCH (08:24)
[2020-10-27] MEDS: Insulin LISPRO 300 UNITS/3 ML VIAL SQ SCH ×4 (08:37→20:44)
[2020-10-27] MEDS: Gabapentin 300 MG CAPSULE PO SCH ×3 (08:38→20:24)
[2020-10-27] MEDS: Spironolactone 25 MG TABLET PO SCH (14:10)
[2020-10-27] MEDS: levoFLOXacin 750 MG/150 ML 750 MG/150 ML BAG IVPB SCH (16:56)
[2020-10-27] MEDS ORDERED: Furosemide 20 MG/2 ML VIAL IVP SCH (17:00)
[2020-10-28 02:13] LABS: Basophils % 0.1 %; Eosinophils % 0.1 %; Hematocrit 37.6 % (35.3-44.9); Hemoglobin 11.6 g/dL (11.5-15.4); Immature Granulocytes % 0.6 % (0-4); Lymphocytes # 0.4 K/mcL (0.6-4.6); Lymphocytes % 2.3 %; Mean Corpuscular HGB Conc 30.9 g/dL (31.6-35.5); Mean Corpuscular Hemoglobin 28.8 pg (28.0-33.3); Mean Corpuscular Volume 93.3 fL (83.0-100.0); Mean Platelet Volume 9.1 fL (9.4-12.4); Monocytes # 0.8 K/mcL (0.0-1.3); Monocytes % 4.5 %; Neutrophils # 16.8 K/mcL (1.6-8.9); Platelet Count 226 K/mcL (140-400); Red Blood Count 4.03 M/mcL (3.82-4.97); Red Cell Distribution Width 16.5 % (11.5-14.5); Segmented Neutrophils % 92.4 %; White Blood Count 18.2 K/mcL (4.3-11.1)
[2020-10-28 02:42] LABS: BUN/Creatinine Ratio 43 (6-26); Blood Urea Nitrogen 20 mg/dL (6-20); Calcium 9.1 mg/dL (8.6-10.3); Carbon Dioxide > 45 mEq/L (23-29); Chloride 85 mEq/L (98-107); Glucose 103 mg/dL (70-105); Osmolality,Calculated 289 (280-300); Sodium 138 mEq/L (136-145); eGFR For African Americans > 60 (> 60); eGFR For Non-African Americans > 60 (> 60)
[2020-10-28] MEDS: Ipratropium/Albuterol Neb 3 ML IH SCH ×6 (03:52→23:50)
[2020-10-28] MEDS: Insulin LISPRO 300 UNITS/3 ML VIAL SQ SCH ×4 (09:32→21:14)
[2020-10-28] MEDS: carvediloL 6.25 MG TABLET PO SCH ×2 (09:33→15:32)
[2020-10-28] MEDS: Gabapentin 300 MG CAPSULE PO SCH ×3 (09:33→20:28)
[2020-10-28] MEDS: *HR* Rivaroxaban 10 MG TABLET PO SCH (09:33)
[2020-10-28] MEDS: Spironolactone 25 MG TABLET PO SCH (09:33)
[2020-10-28] MEDS: Aspirin Enteric Coated 81 MG Tablet PO SCH (09:33)
[2020-10-28] MEDS: predniSONE 20 MG TABLET PO SCH (09:34)
[2020-10-28] MEDS ORDERED: Furosemide 20 MG/2 ML VIAL IVP ONE (15:09)
[2020-10-28] MEDS ORDERED: DilTIAZem CD (24hr) 120 MG CAP.ER.24H PO SCH (16:15)
[2020-10-28] MEDS: methylPREDNISolone 125 MG/2 ML VIAL IVP SCH (16:51)
[2020-10-28] MEDS: levoFLOXacin 750 MG/150 ML 750 MG/150 ML BAG IVPB SCH (16:54)
[2020-10-29] MEDS: Ipratropium/Albuterol Neb 3 ML IH SCH ×6 (03:47→23:57)
[2020-10-29] MEDS: methylPREDNISolone 125 MG/2 ML VIAL IVP SCH ×2 (05:50→17:39)
[2020-10-29 06:22] LABS: Hematocrit 39.7 % (35.3-44.9); Hemoglobin 12.1 g/dL (11.5-15.4); Immature Granulocytes % 0.9 % (0-4); Lymphocytes # 0.3 K/mcL (0.6-4.6); Lymphocytes % 2.2 %; Mean Corpuscular HGB Conc 30.5 g/dL (31.6-35.5); Mean Corpuscular Volume 95.2 fL (83.0-100.0); Mean Platelet Volume 9.5 fL (9.4-12.4); Monocytes # 0.6 K/mcL (0.0-1.3); Monocytes % 4.3 %; Neutrophils # 13.5 K/mcL (1.6-8.9); Platelet Count 189 K/mcL (140-400); Red Blood Count 4.17 M/mcL (3.82-4.97); Red Cell Distribution Width 16.5 % (11.5-14.5); Segmented Neutrophils % 92.6 %; White Blood Count 14.6 K/mcL (4.3-11.1)
[2020-10-29] MEDS ORDERED: 0.9 % Sodium Chloride 250 ML IVC ONE (06:31)
[2020-10-29 06:46] LABS: BUN/Creatinine Ratio 43 (6-26); Blood Urea Nitrogen 23 mg/dL (6-20); Calcium 9.6 mg/dL (8.6-10.3); Carbon Dioxide > 45 mEq/L (23-29); Chloride 87 mEq/L (98-107); Glucose 148 mg/dL (70-105); Osmolality,Calculated 294 (280-300); Potassium 3.6 mEq/L (3.5-5.1); Sodium 139 mEq/L (136-145); eGFR For African Americans > 60 (> 60); eGFR For Non-African Americans > 60 (> 60)
[2020-10-29] MEDS: Insulin LISPRO 300 UNITS/3 ML VIAL SQ SCH ×4 (08:08→20:26)
[2020-10-29] MEDS: *HR* Rivaroxaban 10 MG TABLET PO SCH (08:16)
[2020-10-29] MEDS: Aspirin Enteric Coated 81 MG Tablet PO SCH (08:16)
[2020-10-29] MEDS: Gabapentin 300 MG CAPSULE PO SCH ×3 (08:16→21:42)
[2020-10-29] MEDS: Spironolactone 25 MG TABLET PO SCH (08:16)
[2020-10-29] MEDS: DilTIAZem 50 MG/50 ML IV.SOLN IVC SCH (08:42)
[2020-10-29] MEDS: Morphine Sulfate Oral CONC 10 MG/0.5 ML ORAL.SYG SL PRN (15:03)
[2020-10-29] MEDS: levoFLOXacin 750 MG/150 ML 750 MG/150 ML BAG IVPB SCH (17:25)
[2020-10-29] MEDS: *HR* LORazepam 2 MG/ML VIAL IVP PRN (18:05)
[2020-10-30] MEDS: Ipratropium/Albuterol Neb 3 ML IH SCH ×3 (04:02→11:28)
[2020-10-30] MEDS: methylPREDNISolone 125 MG/2 ML VIAL IVP SCH (05:47)
[2020-10-30] MEDS: DilTIAZem 50 MG/50 ML IV.SOLN IVC SCH (05:59)
[2020-10-30] MEDS: Insulin LISPRO 300 UNITS/3 ML VIAL SQ SCH ×2 (07:41→12:11)
[2020-10-30] MEDS: Spironolactone 25 MG TABLET PO SCH (07:41)
[2020-10-30] MEDS: Gabapentin 300 MG CAPSULE PO SCH (07:42)
[2020-10-30] MEDS: *HR* Rivaroxaban 10 MG TABLET PO SCH (07:42)
[2020-10-30] MEDS: Aspirin Enteric Coated 81 MG Tablet PO SCH (07:42)
[2020-10-30] MEDS: *HR* LORazepam 2 MG/ML VIAL IVP PRN (10:17)
[2020-10-30] MEDS: Morphine Sulfate Oral CONC 10 MG/0.5 ML ORAL.SYG SL PRN (10:18)
[2020-10-30 10:52] VITALS: BP 95/59
== END 2020-10-30 12:58 | disposition hospice, home (50) | DRG 871 ==
LOC: 2NNU 16:59 → EMEROOARM 16:59 → 2NNU 19:57 → 2ANU 10-30 03:43
PROVIDERS: ADMIT Internal Medicine; ATTEND Internal Medicine